=== PATIENT | female | born 1960 | race Caucasian/White ===

== ENCOUNTER → 2019-03-23 | Outpatient (CLI) | payer MEDICARE, MEDICAID ==
--- NOTE | 2019-03-23 12:31 | RAD ---
Indication: Abdominal pain status post cholecystectomy. Pain for 3 months. TECHNIQUE: Noncontrast 3-D MRCP of the abdomen with MIP reformats. COMPARISON: None FINDINGS: Heart is normal in size. No pericardial or effusion. Liver is normal in morphology. Punctate high intensity T2 signal in the segment 2 of the liver most likely simple cyst. No hepatic steatosis. No intra or extrahepatic biliary duct dilation. Main pancreatic duct is nondilated. No pancreatic or peripancreatic inflammatory changes. Spleen is unenlarged and shows no focal lesion. Adrenal glands demonstrate no nodularity. No hydronephrosis. Subcentimeter simple cyst in the upper pole of the right kidney. No abnormal fluid collection in the gallbladder fossa. No internal filling defects seen in the CBD. Visualized bowel demonstrates no obstruction. IMPRESSION: No evidence of choledocholithiasis. Electronically signed by: Robert Carlos DO (03/23/2019 12:28 PM) [facility]
== END | disposition home or self-care (01) ==
LOC: MRI 08:36
PROVIDERS: ATTEND Internal Medicine Gastroenterology
DX: N28.1 Cyst of kidney, acquired (principal); Z90.49 Acquired absence of other specified parts of digestive tract
CPT/HCPCS: 74181